=== PATIENT | male | born 1965 | race African-American/Black ===

== ENCOUNTER 2019-01-26 19:03 | Emergency (ER) | payer OTHER ==
[~2019-01-26] VITALS: Ht 177.8 cm; Wt 72.6 kg
[2019-01-26 19:16] VITALS: Ht 177.8 cm; Wt 72.6 kg
[2019-01-26 19:52] LABS: BASOPHIL % 0.5 % (0-2); PLATELET COUNT 153 x10^3mcL (130-400); RED CELL DISTRIBUTION WIDTH 14.4 % (11.5-14.5)
[2019-01-26 20:01] LABS: CALCIUM 10.2 mg/dL (8.5-10.1); CARBON DIOXIDE 18.2 mmol/L (21-32); CREATININE SERUM 1.8 mg/dL (0.7-1.3); POTASSIUM SERUM 5.1 mmol/L (3.5-5.1)
[2019-01-26 20:07] LABS: ALBUMIN 3.8 g/dL (3.4-5.0); BILIRUBIN TOTAL 0.4 mg/dL (0.20-1.00); TOTAL PROTEIN, SERUM 7.1 g/dL (6.4-8.2)
[2019-01-26 22:03] LABS: microscopic required? YES; urine erythrocyte NEGATIVE (NEGATIVE)
[2019-01-27 06:08] VITALS: BP 136/77
== END 2019-01-27 06:08 | disposition home or self-care (01) ==
LOC: ED 19:03
PROVIDERS: Emergency Medicine
DX: R79.89 Other specified abnormal findings of blood chemistry (principal); I10 Essential (primary) hypertension; E11.9 Type 2 diabetes mellitus without complications; E21.3 Hyperparathyroidism, unspecified; Z98.890 Other specified postprocedural states
CPT/HCPCS: 36415; J7507; J7517; Q0092

== ENCOUNTER 2019-01-31 17:24 | Inpatient (IN) | payer OTHER ==
[~2019-01-31] VITALS: Ht 180.3 cm; Wt 74.8 kg
[2019-01-31 17:36] VITALS: Ht 180.3 cm; Wt 74.8 kg
--- NOTE | 2019-01-31 17:46 | NUR ---
PT BROUGHT FROM [facility] FOR HIGH POTASSIUM 6.4. PT WAS ORIGINALLY GOING TO [facility] DUE TO HX OF RENAL TRANSPLANT. AFTER EKG WAS DONE PT FOUND TO HAVE PEAKED T WAVES AND REDIRECTED TO [facility]. PT AWAKE AND ALERT. PT DENIES ANY CHEST PAIN OR ANY COMPLAINT. PT AWAKE AND ALERT. BREATHING EVEN UNLABORED. NO DISTERSS. MSE IN PROGRESS.
[2019-01-31 18:26] LABS: CALCIUM 11.7 mg/dL (8.5-10.1); CARBON DIOXIDE 23.5 mmol/L (21-32); CREATININE SERUM 1.9 mg/dL (0.7-1.3)
[2019-01-31 18:34] LABS: POTASSIUM SERUM 7.8 mmol/L (3.5-5.1)
--- NOTE | 2019-01-31 18:36 | NUR ---
RT PAGED FOR [employer].
--- NOTE | 2019-01-31 18:46 | NUR ---
PATIENT AMBULATED TO BATHROOM-- WILL MONITOR UPON RETURN. ESCORTED BY C/OS FROM [facility].
--- NOTE | 2019-01-31 19:01 | NUR ---
MEDICATED PER MD ORDERS
--- NOTE | 2019-01-31 19:20 | NUR ---
REPORT GIVEN FROM BRII SALAZAR, PT A&0X4, SPEAKING FULL CLEAR SENTENCES. BREATHING EVEN AND UNLABORED. CM AND [address] ANKUSH ROACH AT BEDSIDE. WILL CONTINUE TO MONITOR.
--- NOTE | 2019-01-31 19:24 | NUR ---
REPORT GIVEN TO MARIE VALERA FOR CONTINUED CARE OF PATIENT.
--- NOTE | 2019-01-31 20:35 | NUR ---
PT RESTING ON GURNEY IN NAD, BREATHING EVEN AND UNLABORED. PT AWAKE AND ALERT, SPEAKING FULL CLEAR SENTENCE. CIM GUARDS AT BEDSIDE. PT REMAINS COOPERATIVE AND CALM, CM AND [address] WILL CONTINUE TO MONITOR.
[2019-01-31] MEDS ORDERED: LANTUS SOLOS100 U/M1 SC (20:53)
[2019-01-31] MEDS ORDERED: RESTASIS0.051 OP (20:54)
[2019-01-31] MEDS ORDERED: HUMALOG100 UNIT/1 SQ ×3 (20:54→21:08)
[2019-01-31] MEDS ORDERED: VELTASSA25.2 GM PO (20:54)
[2019-01-31] MEDS ORDERED: RANITIDINE HCL150 M1 PO (20:55)
[2019-01-31] MEDS ORDERED: AMLODIPINE BESY10 M2 PO (20:55)
[2019-01-31] MEDS ORDERED: NPHOS (20:57)
[2019-01-31] MEDS ORDERED: MILLIPRED5 M1 PO (20:58)
[2019-01-31] MEDS ORDERED: PROGRAF1 MG PO ×2 (20:58)
[2019-01-31] MEDS ORDERED: MYCOPHENOLIC A360 MG PO (20:59)
[2019-01-31] MEDS ORDERED: DAPSONE100 MG PO (20:59)
[2019-01-31] MEDS ORDERED: SENSIPAR30 M1 PO (20:59)
[2019-01-31] MEDS ORDERED: TIMOLOL 0.5%-DO10 ML OP (21:00)
[2019-01-31] MEDS ORDERED: NEVIRAPINE200 MG PO (21:02)
[2019-01-31] MEDS ORDERED: ISENTRESS400 MG PO (21:02)
[2019-01-31] MEDS ORDERED: RITE AID GLUCOSE4 GM PO (21:03)
[2019-01-31] MEDS ORDERED: GOOD SENSE ASPI81 M3 PO (21:05)
[2019-01-31] MEDS ORDERED: HYDRALAZINE HCL25 MG PO (21:05)
[2019-01-31] MEDS ORDERED: MAGNESIUM OXID400 MG PO (21:05)
[2019-01-31] MEDS ORDERED: ALPHAGAN P5 M1 OU (21:06)
[2019-01-31] MEDS ORDERED: SODIUM BICARBO650 MG PO (21:06)
[2019-01-31] MEDS ORDERED: LATANOPROST2.5 ML OU (21:06)
[2019-01-31] MEDS ORDERED: EMTRIVA200 M1 PO (21:07)
[2019-01-31] MEDS ORDERED: LOP100 PO (21:08)
[2019-01-31] MEDS ORDERED: METOPROLOL TAR100 MG PO (21:08)
--- NOTE | 2019-01-31 21:12 | NUR ---
PT STATING "TELL THEM I DONT WANT TO STAY, I WANT TO BE DISCHARGED". DR ESTRADA AND DR EASTMAN MADE AWARE OF PTS REQUEST. CALLED DR ESTRADA TO UPDATE ON PT REQUEST. PER DR ESTRADA, PT TO SIGN OUT AMA.
--- NOTE | 2019-01-31 21:43 | NUR ---
DR EASTMAN AT BEDSIDE SPEAKING WITH PT ABOUT AMA, PT EXPRESSED WORRIES ABOUT MEDICATION ADMINISTRATION IN HOSPITAL. PT DECIDING TO NOT SIGN OUT AMA AND WANTS TO BE ADMITTED TO HOSPITAL. DR ESTRADA MADE AWARE.
--- NOTE | 2019-01-31 21:55 | NUR ---
CALLED [facility] TO [facility]. PER PHARMACY, THEY MIGHT HAVE TROUBLE LOCATING MEDICATION. STATES THEY WILL LOOK AND CALL BACK. DR EASTMAN AND CHEMICAL STRENGTH TESTER MADE AWARE.
--- NOTE | 2019-01-31 22:02 | NUR ---
PHARMACY CALLED BACK TO STATE THEY DO NOT HAVE CELLCEPT MEDICATION. DR EASTMAN MADE AWARE.
--- NOTE | 2019-01-31 22:05 | NUR ---
DR EASTMAN AT BEDSIDE TO SPEAK WITH PT ABOUT PLAN OF CARE.
--- NOTE | 2019-01-31 22:06 | NUR ---
PT STATING HE DOES NOT "WANT TO STAY" IN THE HOSPITAL IF HE CANNOT RECEIVE HIS "KIDNEY MEDICATION". DR EASTMAN MADE AWARE.
--- NOTE | 2019-01-31 22:10 | NUR ---
PT DECIDING TO STAY, PER [facility] PT MEDICATION FROM [facility].
--- NOTE | 2019-01-31 22:30 | NUR ---
PT A&0X4, SPEAKING FULL CLEAR SENTENCES. PT BREATHING EVEN AND UNLABORED. CIM GUARDS AT BEDSIDE. WILL CONTINUE TO MONITOR.
--- NOTE | 2019-01-31 23:06 | NUR ---
REPORT CALLED TO PIETRO SALAZAR
--- NOTE | 2019-01-31 23:10 | NUR ---
PT TRANSFERED [facility]IA [facility] BY GRETA SALAZAR AND JONNIE EMT. PT A&0X4, SPEAKING FULL CLEAR SENTENCES. BREATHING EVEN AND UNLABORED. PT BELONGINGS SENT WITH PT. PT VERBALIZED UNDERSTANDING OF PLAN OF CARE. CIM GUARDS AT BEDSIDE DURING TRANSPORT. IV INTACT WITH NO COMPLICATIONS.
--- NOTE | 2019-01-31 23:25 | NUR ---
RECEIVED PT VIA [employer] FROM E/D, ACCOMPANIED BY RN, TRANSPORTER, AND 2 [facility] GUARDS. PT A/A/O X 4, CALM, COOPERATIVE; WEARS GLASSES (W/ PT). AMBULATORY, NO GAIT OR BALANCE IMPAIRMENT NOTED WHEN WALKING FROM GURNEY TO BED. ON TELE # 22, HR 71, SR + ELEVATED T-WAVES + PAC'S, DENIES CHEST PAIN OR DISCOMFORT AT THIS TIME. SCD BY BEDSIDE. NO ACUTE RESPIRATORY DISTRESS NOTED. 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 IV SITE RAC 20G, [facility]. ORIENTED PT TO ROOM, BED CONTROLS, CALL LIGHT SYSTEM. SIDE RAILS UP X 2, BED IN LOW POSITION. WILL ENDORSE TO MARIE WE[facility]BROOK.
[2019-01-31 23:38] VITALS: BP 140/70
[2019-01-31 23:47] VITALS: BP 142/76
--- NOTE | 2019-02-01 | NUR ---
PT RECEIEVED FROM RAE SALAZAR. PT RESTING IN BED AT THIS TIME. DENIES PAIN OR DISCOMFORT. BREATHING E/U ON RA. WILL CONTINUE TO MONITOR.
[2019-02-01 05:38] VITALS: BP 124/68
--- NOTE | 2019-02-01 06:25 | NUR ---
PT RESTING IN BED AT THIS TIME. DENIES PAIN OR DISCOMFORT AT THIS TIME. BREATHING E/U ON RA. NO SIGNS OF ACUTE DISTRESS AT THIS TIME. BED AT LOWEST POSITION. CALL LIGHT WITHIN REACH. WILL ENDORSE TO DAY NURSE.
[2019-02-01 06:36] LABS: CALCIUM 11.2 mg/dL (8.5-10.1); CARBON DIOXIDE 23.2 mmol/L (21-32); CREATININE SERUM 1.7 mg/dL (0.7-1.3)
[2019-02-01 07:52] LABS: POTASSIUM SERUM 5.9 mmol/L (3.5-5.1)
[2019-02-01 07:56] LABS: BASOPHIL % 0.5 % (0-2)
[2019-02-01 07:58] LABS: PLATELET COUNT 108 x10^3mcL (130-400); RED CELL DISTRIBUTION WIDTH 15.1 % (11.5-14.5)
--- NOTE | 2019-02-01 08:00 | NUR ---
SHIFT ASSESSMENT DONE. PATIENT A/A/OX4; CLEAR SPEECH. TELE#22; SR; HR = 67. DENIED CHEST PAIN. NO RESP DISTRESS ON RA. O2 SAT 96%. DENIED PAIN NOW. PATIENT HAD KINDEY TRQANSPLANT ON APR 2018; LAST HEMODIALYSIS ON APR 2018. AV SHUNT TO [facility] PORTILLO (+)/BRUIT(+). VOID VIA URINAL. IVHL'D TO RAC. DENIED PAIN. CIM OFFICER AT BED SIDE.
[2019-02-01 08:46] VITALS: BP 140/66
--- NOTE | 2019-02-01 10:30 | NUR ---
DR. ESTRADA CAME TO SEE PATIENT. AWARE OF PATIENT'S POTASSIUM LEVEL 5.9; NEW ORDER WRITTEN.
[2019-02-01 12:09] VITALS: BP 133/71
--- NOTE | 2019-02-01 12:32 | NUR ---
POTASSIUM 5.9. LOKEKMA 10GM PO GIVEN PER ORDER.
[2019-02-01 17:06] VITALS: BP 141/64
--- NOTE | 2019-02-01 19:00 | NUR ---
VOID VIA BRP X3; HAD BM X2 THIS SHIFT. IVHL'D TO RFA. TOLERATED CCOH WITH RENAL DIET. ENDROSED CARE TO NOC NURSE.
--- NOTE | 2019-02-01 19:20 | NUR ---
PT RESTING COMFORTABLY IN BED WITH NO ACUTE DISTRESS NOTED, CORRECTIONS OFFICERS AT BEDSIDE, ASSESMENT PERFORMED AT THIS TIME, PT IS A/OX4 NO COMPLAINTS OF MOHAMUD OR DIZZINESS, PT DENIES SOB OR PAIN. TELE 22, IV TO THE RAC, ALL SAFETY PRECAUTIONS IN PLACE, WILL CONTINUE TO MONITOR
--- NOTE | 2019-02-01 20:25 | NUR ---
PT STATING MEDICATION SCHEDULE IS NOT THE SAME AT HIS FACILITY, PT REQUESTED HIS SECOND DOSE OF INSULIN SINCE HE NORMALLY TAKES IT TWICE A DAY, CALLED DR ESTRADA AND DR ESTRADA WENT AHEAD AND ORDERED THE INSULIN 18 U X1I WENT THROUGH HIS MEDICATIONS AND EXPLAINED WHEN HE WAS GETTING EACH MEDICATION, HE BECAME UPSET AND REQUESTED TO LEAVE AMA DUE TO MEDS NOT BEING ORDERED AT THE TIMES HE SAID HE NORMALLY GETS THEM, INFORMED CHARGE NURSE NASIR.
[2019-02-01 20:39] VITALS: BP 128/63
--- NOTE | 2019-02-01 20:50 | NUR ---
SPOKE TO PATIENT RE: CONCERN ABOUT HIS MEDICATION SCHEDULE HERE IN THE HOSP WHICH IS DIFFERENT FROM WHAT HE HAS BEEN TAKING IN THE INFIRMARY THAT MADE HIM FRUSTRATED AND WANTED TO SIGN AMA. SURGICAL INSTRUMENTS INSPECTOR MADE AWARE. WILL CALL DR ESTRADA
--- NOTE | 2019-02-01 21:12 | NUR ---
PATIENT WANTED TO LEAVE AGAINST MEDICAL ADVICE, CALLED AND INFORMED DR ESTRADA.
--- NOTE | 2019-02-02 01:40 | NUR ---
[facility] ARRIVED, DC IV, REMOVED TELE, AND REMOVED HOSPITAL GOWN, RETURNED PTS OWN MEDICATIONS, AND GAVE PAPERS TO [facility]. PT SIGNED AMA FORMS, EDUCATED PT ON RISK ON LEAVING AMA, PT VERBALIZED UNDERSTANDING, PT LEFT WITH BELONINGS WITH GUARD, PT LEFT STABLE, NO DISTRESS NOTED, PT DENIED PAIN OR SOB, RESPIRATIONS EVEN AND UNLABORED.
== END 2019-02-02 01:40 | disposition other institution (70) | DRG 641 ==
LOC: ED 17:24 → DU 19:31
PROVIDERS: Emergency Medicine; ADMIT Internal Medicine
DX: E87.5 Hyperkalemia (principal); Z94.0 Kidney transplant status; I10 Essential (primary) hypertension; E11.9 Type 2 diabetes mellitus without complications; M81.0 Age-related osteoporosis without current pathological fracture; G47.30 Sleep apnea, unspecified; I25.10 Atherosclerotic heart disease of native coronary artery without angina pectoris; E83.52 Hypercalcemia; D64.9 Anemia, unspecified; D69.6 Thrombocytopenia, unspecified; Z79.899 Other long term (current) drug therapy
CPT/HCPCS: 82962; 90658; 90732; G0378; J1815; J3490; J7507; J7517; J7613